=== PATIENT | male | born 2000 ===

== ENCOUNTER 2025-07-06 10:48 | Emergency (ER) | payer SELFPAY ==
--- NOTE | ~2025-07-06 | XR_ITS ---
Examination: XR chest 2V Clinical History: CP, DIFFICULTY BREATHING X 6 MONTHS Comparison: None Technique: PA and Lateral Findings: Cardiomediastinal silhouette normal size and configuration. Lungs clear. No acute bony abnormality. IMPRESSION: 1. No acute cardiopulmonary findings. Reviewed, dictated and finalized at location [facility]
[2025-07-06 10:49] VITALS: BP 144/86; PULSE 95; RESP 18; TEMP 37; O2SAT 100
--- NOTE | 2025-07-06 10:49 | ECG_ITS ---
Test Date: 2025-07-06 10:57:13 Measurements Intervals [place] Rate: 84 P: 84 NE: 120 QRS: 84 QRSD: 106 T: 60 QT: 334 QTc: 396 Interpretive Statements SINUS RHYTHM POSSIBLE LEFT ATRIAL ENLARGEMENT [-0.1mV P-WAVE IN V1/V2] WITHIN NORMAL LIMITS No previous ECG available for comparison Electronically Signed On 07-06-2025 13:24:32 [employer] by Lux Zheng M.D.
[2025-07-06 11:12] LABS: Hematocrit 44.4 % (42.0-52.0); Hemoglobin 15.2 g/dL (14.0-18.0); Immature Granulocyte Percent A 0.2 % (0-0.5); Lymphocytes Absolute Auto 1.49 K/mm3 (0.9-3.2); Mean Corpuscular HGB Conc 34.2 g/dl (32-36); Mean Corpuscular Hemoglobin 29.1 pg (26-34); Mean Corpuscular Volume 84.9 fl (80-100); Nucleated Red Blood Cells Absolute Auto 0.000 K/mm3 (0.0-0.012); Nucleated Red Blood Cells Perc 0.0 % (0.0-0.2); Platelet Count Result 211 k/mm3 (150-375); Red Blood Count 5.23 M/mm3 (4.6-6.20); White Blood Count 4.1 K/mm3 (4.5-10.0)
[2025-07-06 11:21] LABS: Alanine Aminotransferase 16 U/L (6-50); Albumin Level 4.5 g/dL (3.5-5.1); Alkaline Phosphatase 64 U/L (38-126); Anion Gap 8 mmol/L (4-12); Aspartate Amino Transferase 24 U/L (17-59); Bilirubin,Total 0.7 mg/dL (0.2-1.3); Blood Urea Nitrogen 16 mg/dL (9-20); Calcium 9.2 mg/dL (8.4-10.2); Carbon Dioxide 27 mmol/L (22-30); Chloride 101 mmol/L (98-107); Estimated CRCL calculation 85 ml/min; Estimated Glomerular Filt Rate > 60; Glucose 97 mg/dL (65-110); Lipase 52 U/L (23-300); Potassium 3.7 mmol/L (3.4-5.0); Sodium 136 mmol/L (137-145); Total Protein 7.6 g/dL (6.3-8.2)
[2025-07-06 11:22] LABS: INR 1.1; Prothrombin Time 14.3 Seconds (11.1-14.7)
[2025-07-06 11:23] LABS: Partial Thromboplastin Time 24.8 Seconds (22.3-36.8)
[2025-07-06 11:31] LABS: Troponin I 0.014 ng/mL (0.000-0.034)
[2025-07-06 12:11] VITALS: BP 147/91; PULSE 80; RESP 18; O2SAT 100
--- NOTE | 2025-07-06 12:20 | PC.NURSE ---
Patient upset about not getting a cortisol and testosterone level. MD stated these levels can be checked outpatient. Patient upset and stated he does not want to stay and requested discharge paperwork.
--- NOTE | 2025-07-06 12:53 | ED_ITS ---
HPI - Chest Pain General Chief Complaint: Chest Pain Stated Complaint: chest tightness Time Seen by Provider: 07/06/25 12:08 Source: patient and family Mode of arrival: ambulatory Limitations: no limitations History of Present Illness HPI narrative: 25-year-old otherwise healthy here with the complaints of midsternal chest pain which has been going on since January of this year. Patient states that pain is sporadic in nature, nonradiating most of the time at times it goes to his back. He denies any shortness of breath. No cough or fever or chills no previous history of CAD. 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 he has seen of as his primary doctor for this issue couple times. he also mentions that he does sleep well. He denies being anxious or depressed. MD complaint: chest pain Onset (ago): month(s) (5) Timing of current episode: episodic Onset: other ( random) Pain location: parasternal Pain radiation: none Severity: moderate Quality: aching and heaviness Relieving factors: nothing Exacerbating factors: nothing Treatment prior to arrival: none Risk Factors Coronary artery disease risk factors: none Thoracic aortic dissection risk factors: none Review of Systems 2 Review of Systems: All systems reviewed & are unremarkable except as noted in HPI and below Constitutional: Constitutional: Reports no additional constitutional complaints Eyes: Eyes: Reports no additional eye complaints ENT: Reports system reviewed and no additional complaints, except as documented Cardiovascular: Cardiovascular: Reports as per HPI Respiratory: Respiratory: Reports no additional respiratory complaints Gastrointestinal: Gastrointestinal: Reports no additional gastrointestinal complaints Genitourinary: Genitourinary: Reports no additional male genitourinary complaints Musculoskeletal: Musculoskeletal: Reports no additional musculoskeletal complaints Integumentary/Breasts: Skin/Breast: Reports system reviewed and no additional complaints, except as docu Exam 2 Narrative: GENERAL: Well-appearing, well-nourished, and in no acute distress. HEAD: Normocephalic, atraumatic. EYES: PERRLA and EOMI. ENT: Nares clear, no rhinorrhea or epistaxis. Mucous membranes moist. NECK: Supple. CHEST: Clear to auscultation. No respiratory distress. HEART: Regular rate and rhythm. No murmur heard. Normal peripheral pulses. ABDOMEN: Soft, nontender, nondistended, normal active bowel sounds. EXTREMITIES: Normal range of motion. No edema. SKIN: Warm, dry, no rash. NEURO: No focal deficits. Alert and oriented x3. PSYCH: Normal mood and affect. Course Course Emergency Course: Notified patient about his lab work, EKG and chest x-ray findings. Patient was unhappy because we could not find a cause of his pain which has been ongoing for past 5 months. I did inform him that his her heart enzymes are normal so it is very unlikely from is a heart and this time. Could be several other causes causing his pain he wants testosterone levels and cortisone levels drawn I did inform the these are outpatient testing and has to be ordered by his primary doctor. Vital Signs Vital signs: Vital Signs Temperature 37.0 C 07/06/25 10:49 Pulse Rate 95 07/06/25 10:49 Respiratory Rate 18 07/06/25 10:49 Blood Pressure 144/86 H 07/06/25 10:49 Pulse Oximetry 100 07/06/25 10:49 Oxygen Delivery Room Air 07/06/25 10:49 Temperature 37.0 C 07/06/25 10:49 Pulse Rate 80 07/06/25 12:11 Respiratory Rate 18 07/06/25 12:11 Blood Pressure 147/91 H 07/06/25 12:11 Pulse Oximetry 100 07/06/25 12:11 Oxygen Delivery Room Air 07/06/25 12:11 MDM - Chest Pain Differential Diagnosis Differential diagnosis: Likely atypical chest pain, costochondritis and chest pain Medical Records Data Attestation: I reviewed the patient's medical records. Lab Data Attestation: I reviewed the patient's lab results. 07/06/25 10:57 07/06/25 10:57 Labs: Lab Results 07/06/25 07/06/25 Range/Units 10:57 10:58 WBC 4.1 L (4.5-10.0) K/mm3 RBC 5.23 (4.6-6.20) M/mm3 Hgb 15.2 (14.0-18.0) g/dL Hct 44.4 (42.0-52.0) % MCV 84.9 (80-100) fl MCH 29.1 (26-34) pg MCHC 34.2 (32-36) g/dl RDW 11.5 (11.5-14.5) % Plt Count 211 (150-375) k/mm3 MPV 10.2 (7.4-10.4) fl Immature Gran % (Auto) 0.2 (0-0.5) % Neut % (Auto) 52.9 (45.5-73.1) % Lymph % (Auto) 36.2 (18.3-44.2) % [place] % (Auto) 7.8 (2.6-8.5) % Eos % (Auto) 1.7 (0-4.4) % Baso % (Auto) 1.2 (0.2-1.2) % Lymph # (Auto) 1.49 (0.9-3.2) K/mm3 [place] # (Auto) 0.3 (0.1-0.6) K/mm3 Eos # (Auto) 0.1 (0-0.3) K/mm3 Baso # (Auto) 0.1 (0.0-0.1) K/mm3 Abs Immat Gran (auto) 0.01 (0.00-0.031) K/mm3 Absolute Neuts (auto) 2.2 (1.3-6.7) K/mm3 Absolute Nucleated RBC 0.000 (0.0-0.012) K/mm3 Nucleated RBC % 0.0 (0.0-0.2) % PT 14.3 (11.1-14.7) Seconds INR 1.1 APTT 24.8 (22.3-36.8) Seconds Sodium 136 L (137-145) mmol/L Potassium 3.7 (3.4-5.0) mmol/L Chloride 101 (98-107) mmol/L Carbon Dioxide 27 (22-30) mmol/L Anion Gap 8 (4-12) mmol/L BUN 16 (9-20) mg/dL Creatinine 1.07 (0.7-1.3) mg/dL Estim Creat Clear Calc 85 ml/min Estimated GFR > 60 (59 - ) Glucose 97 (65-110) mg/dL Calcium 9.2 (8.4-10.2) mg/dL Total Bilirubin 0.7 (0.2-1.3) mg/dL AST 24 (17-59) U/L ALT 16 (6-50) U/L Alkaline Phosphatase 64 (38-126) U/L Troponin I 0.014 (0.000-0.034) ng/mL Total Protein 7.6 (6.3-8.2) g/dL Albumin 4.5 (3.5-5.1) g/dL Lipase 52 (23-300) U/L Imaging Data Radiologist's impression: ITS Impressions Chest X-Ray 07/06/25 11:17 IMPRESSION: 1. No acute cardiopulmonary findings. ECG Data EKG #1: ECG completion date: 07/06/25 ECG completion time: 10:57 EKG Interpretation: normal rate (84), sinus rhythm, no ectopy, no ST changes, normal QRS, normal QT and no acute changes Discharge Plan Discharge Clinical Impression: Atypical chest pain Patient Disposition: Home Condition: Stable Instructions: Chest Pain (ED) Patient Language: Maltese Follow-up/Referrals: PHYSICIAN,RETARDER OPERATOR [Primary Care Provider, Internal Medicine] Jesus Pastor MD [Physician, Family Practice] Time of Disposition: 12:15
== END 2025-07-06 12:42 | disposition home or self-care (01) ==
LOC: ANHED 12:27
PROVIDERS: Student in an Organized Health Care Education/Training Program; Emergency Provider Family Medicine
DX: R07.89 Other chest pain (principal); R94.31 Abnormal electrocardiogram [ECG] [EKG]
CPT/HCPCS: 36415; 71046; 80053; 83690; 84484; 85025; 85610; 85730; 93005; 99284